=== PATIENT | female | born 1995 | race Caucasian/White ===

== ENCOUNTER → 2018-04-18 12:00 | Outpatient (CLI) | payer OTHER, MEDICAID, SELFPAY | PROVIDERS: Family Provider Family Medicine; PCP Family Medicine | DX: Z23 Encounter for immunization (principal) | CPT/HCPCS: 90471; 90686 ==

== ENCOUNTER → 2019-07-10 10:20 | Outpatient (CLI) | payer SELFPAY | PROVIDERS: PCP Family Medicine | DX: Z23 Encounter for immunization (principal) | CPT/HCPCS: 90471; 90686 ==

== ENCOUNTER 2019-08-23 12:29 | Emergency (ER) | payer OTHER, SELFPAY ==
[2019-08-23 12:40] VITALS: BP 121/76; PULSE 100; RESP 18; TEMP 36.7; O2SAT 98; BMI 30.7
[2019-08-23] MEDS: ONDANSETRON 4 MG/2 ML INJ IV (13:14)
[2019-08-23] MEDS: SODIUM CHLORIDE 0.9% 1,000 ML 1000 ML IV (13:14)
[2019-08-23 13:22] LABS: Bacteria Urine None Seen; RBC Urine None Seen (0-5/HPF); WBC Urine None Seen (0-5/HPF)
[2019-08-23] MEDS: PANTOPRAZOLE 40 MG VIAL IV (13:29)
[2019-08-23 13:31] LABS: Culture Indicated Urine Cult Not Indicated; Mucus Urine 2+ (Negative); Squamous Epithelial Cell Urine 5-10 /HPF (0-5/HPF)
[2019-08-23 13:33] LABS: Add Manual Diff / Slide Review NO; Basophils Absolute Auto 0 /uL (0-100); Basophils Percent Auto 0.1 % (0-2); Eosinophils Absolute Auto 100 /uL (0-450); Eosinophils Percent Auto 0.7 % (2-4); Hematocrit 40.5 % (36-46); Lymphocytes Absolute Auto 900 /uL (1100-4500); Lymphocytes Percent Auto 8.1 % (25-40); Mean Corpuscular HGB Conc 34.7 % (30-36); Mean Corpuscular Hemoglobin 28.1 PG (26-34); Mean Corpuscular Volume 81.1 fL (80-100); Monocytes Absolute Auto 600 /uL (0-900); Neutrophils Absolute Auto 10000 /uL (1500-7000); Neutrophils Percent Auto 86.1 % (50-75); Platelet Count 241 X10^3/uL (150-400); Red Blood Cell Count 4.99 X10^6/uL (4.0-5.2); White Blood Cell Count 11.6 X10^3/uL (4.5-11.0)
[2019-08-23 13:35] LABS: PTT Partial Thromboplastin Tim 27 SECONDS (26.4-36.2)
[2019-08-23 13:37] LABS: Alanine Aminotransferase 23 IU/L (<35); Albumin 4.9 g/dL (3.5-5.0); Albumin Globulin Ratio 1.5 (1.0-2.8); Alkaline Phosphatase 62 U/L (38-126); Aspartate Aminotransferase 28 IU/L (14-36); Bilirubin Total 0.4 mg/dL (0.2-1.3); Blood Urea Nitrogen 16 mg/dL (7-17); Carbon Dioxide 23 mmol/L (22-32); Chloride 105 mmol/L (98-107); Estimated Glomerular Filt Rate > 60.0 mL/min (>60); Globulin 3.3 g/dL (1.7-4.1); Glucose 118 mg/dL (70-100); HEMOLYSIS < 15 (0-50); Lipase 34 U/L (23-300); Potassium 3.7 mmol/L (3.4-5.1); Sodium 141 mmol/L (137-145); Total Protein 8.2 g/dL (6.3-8.2)
[2019-08-23 14:07] VITALS: BP 102/61; PULSE 95; O2SAT 100
[2019-08-23] MEDS: KETOROLAC 60 MG/2 ML VIAL 30 MG IV (14:35)
[2019-08-23 15:29] VITALS: BP 111/66; PULSE 90; O2SAT 100
--- NOTE | 2019-08-23 15:37 | ED.ABDPAIN ---
HPI - Abdominal Pain <MONICA ArmandoP - Last Filed: 08/24/19 03:09> General Chief Complaint: Abdominal Pain Stated Complaint: ABDOMINAL PAIN/ NASUEA/ PUKING Time Seen by Provider: 08/23/19 13:06 Source: patient Mode of arrival: Wheelchair Limitations: no limitations History of Present Illness HPI narrative: This is a 24 year female, nonsmoker, who presents to ED with chief complain of sudden onset of nausea, vomiting, diarrhea and generalized abdominal discomfort which started at 10:30 a.m. this morning. Patient reports nonbloody emesis x2 and diarrhea x3 and feeling dehydrated. Patient's daughter had similar symptoms prior to this. Patient reports intermittent chills specially after the vomiting. Patient reports pain mostly around the periumbilical region. The patient reports had cold symptoms for about a week with sore throat, feeling tired, runny nose, congestion. Patient denies urinary symptoms or unusual vaginal discharge or concerns for STIs. Patient denies previous abdominal surgeries or recent antibiotic medication use. Related Data Home Medications Medication Instructions Recorded Confirmed ascorbic acid (vitamin C) 500 mg PO QDAY #0 08/24/16 ferrous sulfate [Iron (ferrous 325 mg PO QDAY #0 08/24/16 sulfate)] Previous Rx's Medication Instructions Recorded ondansetron 4 mg PO BID-TID PRN #7 tab 08/23/19 Allergies Allergy/AdvReac Type Severity Reaction Status Date / Time No Known Drug Allergies Allergy Unknown Unverified 11/14/17 11:48 pollen Allergy Unknown postnasal Uncoded 11/14/17 11:48 congestion wasps Allergy Unknown swelling/re Uncoded 11/14/17 11:48 dness Review of Systems <Deniz Perales COLLECTION SYSTEMS ADMINISTRATOR - Last Filed: 08/24/19 03:09> Review of Systems Narrative: General: Denies fever, (+) intermittent chills after vomiting, (+) fatigue, malaise, sweats. HEENT: Denies sinus pain, ear pain, sore throat, difficulty swallowing, dizziness. Respiratory: Denies dyspnea, cough, wheezing, hemoptysis, sputum. Cardiovascular: Denies chest pain, palpitations, orthopnea, edema. Gastrointestinal: See HPI : Denies dysuria, frequency, incontinence, hematuria, urinary retention. Musculoskeletal: Denies weakness, joint pain or bony pain. Skin: Denies rash, skin lesions, or other. Neurologic: Denies weakness, headache, numbness, change in speech, confusion, seizures, incoordination. Psychiatric: No concerning psychosocial issues. 12-point review of systems is negative except for those stated above. Patient History <HENRY Armando - Last Filed: 08/24/19 03:09> Medical History No significant past medical history (Acute) Surgical History No pertinent past surgical history (Acute) Social History Smoking Status: Never smoker Smoking Status: Never smoker alcohol intake frequency: holidays/special occasions only Substance Use Type: does not use Exam <HENRY Armando - Last Filed: 08/24/19 03:09> Narrative Exam Narrative: GEN: Alert, oriented x 3, well appearing and nourished, and in no acute distress. Head: Normal cephalic, atraumatic. No scalp or temporal tenderness, palpable mass or rash. EYES: Pupils are equal, round, and reactive to light and accommodation. Extraocular muscles are intact bilaterally. There is no subconjunctival hemorrhage, exudate and sclera non-icteric. ENT: Bilateral auditory canals and tympanic membranes clear. Hearing grossly intact. Nose without bleeding, purulent discharge or deviation. Facial sinuses nontender to palpate. Mucous membrane moist, no mucosal lesion. Throat without erythema, tonsillar hypertrophy or exudate. Uvula in midline, airway patent. Neck: Trachea in midline. No JVD, non-tender without lymphadenopathy. No masses or thyroid megaly. Supple, non-tender and no meningeal signs. CARDIAC: Normal regular rate and rhythm without murmurs, gallops, or rubs. No chest wall tenderness. No peripheral edema, cyanosis or pallor. Capillary refill is less than 2 seconds. RESPIRATORY: Lungs are clear to auscultate bilaterally. No cough, wheezes, rales, or rhonchi. No stridor, respiratory distress, increase work of breathing, or accessary muscle used. ABD: Abdomen soft, diffused abdominal discomfort to palpate in 4 quads and non-distended. No guarding or rebound tenderness to palpate. Negative Adam's sign. Negative psoas sign. Negative heel tap test. Bowel sounds are normal in all 4 quadrants. There is no palpable masses or organomegaly. EXT: Full painless ROM of all extremities with no loss of sensation, strength, effusion or edema. SKIN: Warm, dry, normal color for patient. No erythema, lesions or rash over visible areas. BACK: Nontender without deformity or crepitance. No flank tenderness. NEUROLOGICAL: Alert and oriented to place, time and person. Sensation and motor function intact bilaterally. No facial droops, dysphasia. PSYCHIATRIC: Good judgement and reason, without hallucinations, abnormal affect or abnormal behaviors during the examination. Initial Vital Signs Initial Vital Signs: Vital Signs Temperature 98.0 F 08/23/19 12:40 Pulse Rate 100 H 08/23/19 12:40 Respiratory Rate 18 08/23/19 12:40 Blood Pressure 121/76 08/23/19 12:40 Pulse Oximetry 98 08/23/19 12:40 <Monisha Sánchez DO - Last Filed: 08/25/19 11:50> Initial Vital Signs Initial Vital Signs: Vital Signs Temperature 98.0 F 08/23/19 12:40 Pulse Rate 100 H 08/23/19 12:40 Respiratory Rate 18 08/23/19 12:40 Blood Pressure 121/76 08/23/19 12:40 Pulse Oximetry 98 08/23/19 12:40 Scores <HENRY Armando - Last Filed: 08/24/19 03:09> GCS Adilson coma scale eye opening: Spontaneous Adilson coma scale verbal response: Orientated Adilson coma scale motor response: Obey commands [place] coma scale total score: 15 Course <HENRY Armando - Last Filed: 08/24/19 03:09> Orders Ordered: Discontinued Medications Sodium Chloride (Normal Saline 0.9%) 1,000 mls @ 1,000 mls/hr IV BOLUS ONE Stop: 08/23/19 14:17 Last Infusion: 08/23/19 14:40 Dose: 0 mls/hr Documented by: Admin: 08/23/19 13:14 Dose: 1,000 mls/hr Documented by: DELFIN Sodium Chloride (Normal Saline 0.9%) 1,000 mls @ 1,000 mls/hr IV BOLUS ONE Stop: 08/23/19 15:21 Last Admin: 08/23/19 15:08 Dose: Not Given Documented by: DELFIN Ketorolac Tromethamine (Toradol) 30 mg IV NOW ONE Stop: 08/23/19 14:30 Last Admin: 08/23/19 14:35 Dose: 30 mg Documented by: DELFIN Ondansetron HCl (Zofran) 4 mg IV NOW ONE Stop: 08/23/19 12:47 Last Admin: 08/23/19 13:14 Dose: 4 mg Documented by: DELFIN Pantoprazole Sodium (Protonix) 40 mg IV NOW ONE Stop: 08/23/19 13:27 Last Admin: 08/23/19 13:29 Dose: 40 mg Documented by: DELFIN Vital Signs Vital signs: Vital Signs - 8 hr 08/23/19 12:40 08/23/19 14:07 08/23/19 15:29 Temperature 98.0 F Pulse Rate 100 H 95 H 90 Respiratory Rate 18 Blood Pressure 121/76 Blood Pressure [Left Arm] 102/61 111/66 Pulse Oximetry 98 100 100 <Monisha Sánchez DO - Last Filed: 08/25/19 11:50> Orders Ordered: Discontinued Medications Sodium Chloride (Normal Saline 0.9%) 1,000 mls @ 1,000 mls/hr IV BOLUS ONE Stop: 08/23/19 14:17 Last Infusion: 08/23/19 14:40 Dose: 0 mls/hr Documented by: Admin: 08/23/19 13:14 Dose: 1,000 mls/hr Documented by: DELFIN Sodium Chloride (Normal Saline 0.9%) 1,000 mls @ 1,000 mls/hr IV BOLUS ONE Stop: 08/23/19 15:21 Last Admin: 08/23/19 15:08 Dose: Not Given Documented by: DELFIN Ketorolac Tromethamine (Toradol) 30 mg IV NOW ONE Stop: 08/23/19 14:30 Last Admin: 08/23/19 14:35 Dose: 30 mg Documented by: DELFIN Ondansetron HCl (Zofran) 4 mg IV NOW ONE Stop: 08/23/19 12:47 Last Admin: 08/23/19 13:14 Dose: 4 mg Documented by: DELFIN Pantoprazole Sodium (Protonix) 40 mg IV NOW ONE Stop: 08/23/19 13:27 Last Admin: 08/23/19 13:29 Dose: 40 mg Documented by: DELFIN Vital Signs Vital signs: Vital Signs - 8 hr 08/23/19 12:40 08/23/19 14:07 08/23/19 15:29 Temperature 98.0 F Pulse Rate 100 H 95 H 90 Respiratory Rate 18 Blood Pressure 121/76 Blood Pressure [Left Arm] 102/61 111/66 Pulse Oximetry 98 100 100 MDM - Abdominal Pain <Deniz HENRY Perales - Last Filed: 08/24/19 03:09> Differential Diagnosis Differential diagnosis: Likely abdominal pain, acute appendicitis, gastroenteritis and other (ovarian cyst) Medical Records Attestation: I reviewed the patient's medical records. Lab Data Attestation: I reviewed the patient's lab results. Result diagrams: 08/23/19 13:15 08/23/19 13:15 Labs: Lab Results 08/23/19 08/23/19 08/23/19 Range/Units 12:51 13:15 13:15 WBC 11.6 H (4.5-11.0) X10^3/uL RBC 4.99 (4.0-5.2) X10^6/uL Hgb 14.0 (12.0-16.0) g/dL Hct 40.5 (36-46) % MCV 81.1 (80-100) fL MCH 28.1 (26-34) PG MCHC 34.7 (30-36) % RDW 13.0 (11.6-14.8) % Plt Count 241 (150-400) X10^3/uL Neut % (Auto) 86.1 H (50-75) % Lymph % (Auto) 8.1 L (25-40) % [place] % (Auto) 5.0 (3-14) % Eos % (Auto) 0.7 L (2-4) % Baso % (Auto) 0.1 (0-2) % Neut # (Auto) 01213 H (0883-8776) /uL Lymph # (Auto) 900 L (1047-4109) /uL [place] # (Auto) 600 (0-900) /uL Eos # (Auto) 100 (0-450) /uL Baso # (Auto) 0 (0-100) /uL PT 12.0 (10.1-12.7) SECONDS INR 1.0 (0.9-1.3) APTT 27 (26.4-36.2) SECONDS Sodium (137-145) mmol/L Potassium (3.4-5.1) mmol/L Chloride (98-107) mmol/L Carbon Dioxide (22-32) mmol/L BUN (7-17) mg/dL Creatinine (0.52-1.04) mg/dL Estimated GFR (>60) mL/min BUN/Creatinine Ratio (6-22) Glucose (70-100) mg/dL Calcium (8.4-10.2) mg/dL Total Bilirubin (0.2-1.3) mg/dL AST (14-36) IU/L ALT (<35) IU/L Alkaline Phosphatase (38-126) U/L Total Protein (6.3-8.2) g/dL Albumin (3.5-5.0) g/dL Globulin (1.7-4.1) g/dL Albumin/Globulin Ratio (1.0-2.8) Lipase (23-300) U/L Urine RBC None seen (0-5/HPF) Urine WBC None seen (0-5/HPF) Ur Squamous Epith Cells 5-10 /hpf H (0-5/HPF) Urine Bacteria None seen (None) Urine Mucus 2+ H (Negative) Ur Culture Indicated? Cult not indicated 08/23/19 Range/Units 13:15 WBC (4.5-11.0) X10^3/uL RBC (4.0-5.2) X10^6/uL Hgb (12.0-16.0) g/dL Hct (36-46) % MCV (80-100) fL MCH (26-34) PG MCHC (30-36) % RDW (11.6-14.8) % Plt Count (150-400) X10^3/uL Neut % (Auto) (50-75) % Lymph % (Auto) (25-40) % [place] % (Auto) (3-14) % Eos % (Auto) (2-4) % Baso % (Auto) (0-2) % Neut # (Auto) (2243-4957) /uL Lymph # (Auto) (6474-4205) /uL [place] # (Auto) (0-900) /uL Eos # (Auto) (0-450) /uL Baso # (Auto) (0-100) /uL PT (10.1-12.7) SECONDS INR (0.9-1.3) APTT (26.4-36.2) SECONDS Sodium 141 (137-145) mmol/L Potassium 3.7 (3.4-5.1) mmol/L Chloride 105 (98-107) mmol/L Carbon Dioxide 23 (22-32) mmol/L BUN 16 (7-17) mg/dL Creatinine 0.50 L (0.52-1.04) mg/dL Estimated GFR > 60.0 (>60) mL/min BUN/Creatinine Ratio 32.0 H (6-22) Glucose 118 H (70-100) mg/dL Calcium 9.0 (8.4-10.2) mg/dL Total Bilirubin 0.4 (0.2-1.3) mg/dL AST 28 (14-36) IU/L ALT 23 (<35) IU/L Alkaline Phosphatase 62 (38-126) U/L Total Protein 8.2 (6.3-8.2) g/dL Albumin 4.9 (3.5-5.0) g/dL Globulin 3.3 (1.7-4.1) g/dL Albumin/Globulin Ratio 1.5 (1.0-2.8) Lipase 34 (23-300) U/L Urine RBC (0-5/HPF) Urine WBC (0-5/HPF) Ur Squamous Epith Cells (0-5/HPF) Urine Bacteria (None) Urine Mucus (Negative) Ur Culture Indicated? Point of care testing: Point of Care Testing Test Results Negative Urine Dip Bedside Urine Glucose Negative Bedside Urine Bilirubin + 1 Bedside Urine Ketone - Negative Urine Specific [employer] 1.030 Bedside Urine Occult Blood - Negative Bedside Urine pH 5.5 Bedside Urine Protein + 30 Bedside Urine Urobilinogen - Negative Bedside Urine Nitrite - Negative Bedside Urine Leukocytes - Negative Esterase MDM Narrative Medical decision making narrative: This is a 24 year female who presents to ED with sudden onset of nausea, vomiting, diarrhea since this morning and reports feeling dehydrated. She has ill exposure to her daughter who had similar symptoms. Abdominal exam is not consistent with peritoneal signs, acute appendicitis. Abdomen was soft, nondistended and TTP in diffuesed abdomen. Afebril with stable VS. Mildly elevated leukocytosis of 11.6 and neutrophil of 86.1. Normal BUN and Cr but elevated BUN/Cr ratio of 32.0. Otherwise unremarkable chemistry. Patient was hydrated with normal saline a liter, medicated with Zofran, Toradol, Protonix. Patient was able to tolerate a glass of water without nausea and vomiting and able to ambulate without difficulty. Deferred imaging test at this time since when she had ovarian cyst pain it felt different with Stable H&H and physical exam is not consistent with appendicitis. We spoke strict return precautions and patient verbalized understanding. Discharged to home with Zofran ODT and advised to push fluids. Patient agrees with the treatment plan. <Monisha Sánchez, DO - Last Filed: 08/25/19 11:50> Lab Data Labs: Lab Results 08/23/19 08/23/19 08/23/19 Range/Units 12:51 13:15 13:15 WBC 11.6 H (4.5-11.0) X10^3/uL RBC 4.99 (4.0-5.2) X10^6/uL Hgb 14.0 (12.0-16.0) g/dL Hct 40.5 (36-46) % MCV 81.1 (80-100) fL MCH 28.1 (26-34) PG MCHC 34.7 (30-36) % RDW 13.0 (11.6-14.8) % Plt Count 241 (150-400) X10^3/uL Neut % (Auto) 86.1 H (50-75) % Lymph % (Auto) 8.1 L (25-40) % [place] % (Auto) 5.0 (3-14) % Eos % (Auto) 0.7 L (2-4) % Baso % (Auto) 0.1 (0-2) % Neut # (Auto) 06091 H (6350-9149) /uL Lymph # (Auto) 900 L (2813-1221) /uL [place] # (Auto) 600 (0-900) /uL Eos # (Auto) 100 (0-450) /uL Baso # (Auto) 0 (0-100) /uL PT 12.0 (10.1-12.7) SECONDS INR 1.0 (0.9-1.3) APTT 27 (26.4-36.2) SECONDS Sodium (137-145) mmol/L Potassium (3.4-5.1) mmol/L Chloride (98-107) mmol/L Carbon Dioxide (22-32) mmol/L BUN (7-17) mg/dL Creatinine (0.52-1.04) mg/dL Estimated GFR (>60) mL/min BUN/Creatinine Ratio (6-22) Glucose (70-100) mg/dL Calcium (8.4-10.2) mg/dL Total Bilirubin (0.2-1.3) mg/dL AST (14-36) IU/L ALT (<35) IU/L Alkaline Phosphatase (38-126) U/L Total Protein (6.3-8.2) g/dL Albumin (3.5-5.0) g/dL Globulin (1.7-4.1) g/dL Albumin/Globulin Ratio (1.0-2.8) Lipase (23-300) U/L Urine RBC None seen (0-5/HPF) Urine WBC None seen (0-5/HPF) Ur Squamous Epith Cells 5-10 /hpf H (0-5/HPF) Urine Bacteria None seen (None) Urine Mucus 2+ H (Negative) Ur Culture Indicated? Cult not indicated 08/23/19 Range/Units 13:15 WBC (4.5-11.0) X10^3/uL RBC (4.0-5.2) X10^6/uL Hgb (12.0-16.0) g/dL Hct (36-46) % MCV (80-100) fL MCH (26-34) PG MCHC (30-36) % RDW (11.6-14.8) % Plt Count (150-400) X10^3/uL Neut % (Auto) (50-75) % Lymph % (Auto) (25-40) % [place] % (Auto) (3-14) % Eos % (Auto) (2-4) % Baso % (Auto) (0-2) % Neut # (Auto) (5895-4307) /uL Lymph # (Auto) (7808-9230) /uL [place] # (Auto) (0-900) /uL Eos # (Auto) (0-450) /uL Baso # (Auto) (0-100) /uL PT (10.1-12.7) SECONDS INR (0.9-1.3) APTT (26.4-36.2) SECONDS Sodium 141 (137-145) mmol/L Potassium 3.7 (3.4-5.1) mmol/L Chloride 105 (98-107) mmol/L Carbon Dioxide 23 (22-32) mmol/L BUN 16 (7-17) mg/dL Creatinine 0.50 L (0.52-1.04) mg/dL Estimated GFR > 60.0 (>60) mL/min BUN/Creatinine Ratio 32.0 H (6-22) Glucose 118 H (70-100) mg/dL Calcium 9.0 (8.4-10.2) mg/dL Total Bilirubin 0.4 (0.2-1.3) mg/dL AST 28 (14-36) IU/L ALT 23 (<35) IU/L Alkaline Phosphatase 62 (38-126) U/L Total Protein 8.2 (6.3-8.2) g/dL Albumin 4.9 (3.5-5.0) g/dL Globulin 3.3 (1.7-4.1) g/dL Albumin/Globulin Ratio 1.5 (1.0-2.8) Lipase 34 (23-300) U/L Urine RBC (0-5/HPF) Urine WBC (0-5/HPF) Ur Squamous Epith Cells (0-5/HPF) Urine Bacteria (None) Urine Mucus (Negative) Ur Culture Indicated? Point of care testing: Point of Care Testing Test Results Negative Urine Dip Bedside Urine Glucose Negative Bedside Urine Bilirubin + 1 Bedside Urine Ketone - Negative Urine Specific [employer] 1.030 Bedside Urine Occult Blood - Negative Bedside Urine pH 5.5 Bedside Urine Protein + 30 Bedside Urine Urobilinogen - Negative Bedside Urine Nitrite - Negative Bedside Urine Leukocytes - Negative Esterase Discharge Plan Departure Patient Disposition: Home Clinical Impression: Gastroenteritis Discharge Date/Time: 08/23/19 15:40 Instructions: DI for Viral Gastroenteritis -- Adult Activity Restrictions/Additional Instructions: You have been diagnosed with [gastroenteritis. You were hydrated with IV fluid and IV medications Zofran for nausea. You were able to tolerate water without difficulty afterwards. There was very mild elevation in white count and electrolytes indicate you are dehydrated. There is no indication for urinary tract infection today]. What to do: *Take your medications as directed. Use Zofran as needed for nausea and vomiting. Please hydrate adequately with water, sports drink, juice. *Follow up with your primary care provider in 2-3 days, call for an appointment. Let them know you were seen in the ED and that we asked you to be seen in follow up. *Return to ED if you have any new, worsening, or concerning symptoms, such as [chest pain, breathing difficulty, unable to tolerate fluids, fever, worsening pain in lower abdomen or epigastric region for possible imaging test. Good hand hygiene will prevent transmitting gastroenteritis to others.]. Prescriptions: New ondansetron 4 mg tablet,disintegrating 4 mg PO BID-TID PRN (Reason: nausea and vomiting) Qty: 7 RF: 0 No Action ferrous sulfate [Iron (ferrous sulfate)] 325 MG tablet 325 mg PO QDAY Qty: 0 RF: 0 ascorbic acid (vitamin C) 500 MG tablet 500 mg PO QDAY Qty: 0 RF: 0 Referrals: Digna Panchal MD [Primary Care Provider] -
== END 2019-08-23 15:40 | disposition home or self-care (01) ==
PROVIDERS: Emergency Medicine; Emergency Provider Nurse Practitioner Family; PCP Family Medicine
DX: K52.9 Noninfective gastroenteritis and colitis, unspecified (principal)
CPT/HCPCS: 36415; 80053; 81003; 81015; 81025; 83690; 85025; 85610; 85730; 96361; 96374; 96375; 99284; C9113; J1885; J2405